=== PATIENT | female | born 1995 | race Caucasian/White ===

== ENCOUNTER 2016-11-05 22:39 | Emergency (ER) | payer SELFPAY ==
[2016-11-05] MEDS ORDERED: Sodium Chloride 0.9% 1,000 ML IV ONE (23:09)
[2016-11-05 23:38] LABS: BASO # 0.1 K/uL (0.0-0.2); BASO % 0.8 % (0.0-2.0); EOS # 0.1 K/uL (0.0-0.7); HEMATOCRIT 35.5 % (34.0-47.0); LYMPH # 3.6 K/uL (1.0-4.3); MEAN CORPUSCULAR HEMOGLOBIN 26.9 pg (27.0-31.0); MEAN CORPUSCULAR HGB CONC 33.1 g/dL (33.0-37.0); MEAN PLATELET VOLUME 9.2 fL (7.2-11.7); MONO # 0.9 K/uL (0.0-0.8); RED CELL DISTRIBUTION WIDTH 13.5 % (11.5-14.5); WHITE BLOOD COUNT 9.5 K/uL (4.8-10.8)
[2016-11-05 23:40] LABS: RBC URINE < 1 /hpf (0-3); URINE BILIRUBIN NEGATIVE (NEGATIVE); URINE BLOOD NEGATIVE (NEGATIVE); URINE COLOR Yellow (YELLOW); URINE GLUCOSE (UA) NORMAL (Normal); URINE KETONE NEGATIVE (NEGATIVE); URINE LEUKOCYTE ESTERASE NEG Leu/uL (Negative); URINE PROTEIN NEGATIVE (NEGATIVE); URINE UROBILINOGEN NORMAL mg/dL (0.2-1.0); WBC URINE < 1 /hpf (0-5)
[2016-11-05 23:46] LABS: CHLORIDE 99 mmol/L (98-107); POTASSIUM 3.7 mmol/L (3.6-5.2); SODIUM 134 mmol/L (132-148)
[2016-11-05 23:48] LABS: BILIRUBIN,TOTAL 0.5 mg/dL (0.2-1.3); CARBON DIOXIDE 25 mmol/L (22-30); GFR AFRICAN-AMERICAN > 60
[2016-11-05 23:49] LABS: ALB/GLOB RATIO 1.2 (1.0-2.1); ALKALINE PHOSPHATASE 49 U/L (38-126); ALT/SGPT 13 U/L (9-52); AST/SGOT 20 U/L (14-36); BLOOD UREA NITROGEN 13 mg/dL (7-17); GLUCOSE,RANDOM 73 mg/dL (65-105); TOTAL PROTEIN 7.4 g/dL (6.3-8.3)
--- NOTE | 2016-11-06 00:07 | C.PDOC ---
History Of Present Illness <Khalif Terrell Angel - Last Filed: 11/06/16 01:30> <Qasim Andrews E - Last Filed: 11/09/16 23:56> Patient is a 21 year old female who presents to the ER with a complaint of cramping without menstrual bleeding. Patient report she is 12 weeks , P:0, and has no prior US of this . Denies vaginal discharge and abdominal pain. (Qasim Andrews) <XanderKhalif Angel - Last Filed: 11/06/16 01:30> History Per: Patient History/Exam Limitations: no limitations Onset/Duration Of Symptoms: Hrs Current Symptoms Are (Timing): Still Present Quality Of Discomfort: Other (No pain) Associated Symptoms: denies: Other (Abdominal pain, vaginal discharge) Recent travel outside of the [place]: No : 1 Para: 0 <Qasim Andrews - Last Filed: 11/09/16 23:56> Time Seen by Provider: 11/05/16 23:01 Chief Complaint (Nursing): Female Genitourinary Past Medical History Reviewed: Historical Data, Nursing Documentation, Vital Signs - Medical History PMH: No Chronic Diseases Surgical History: No Surg Hx Family History: States: Unknown Family Hx - Social History Hx Alcohol Use: No Hx Substance Use: No - Immunization History Hx Tetanus Toxoid Vaccination: No Hx Influenza Vaccination: No Hx Pneumococcal Vaccination: No <Qasim Andrews E - Last Filed: 11/09/16 23:56> Vital Signs: Last Vital Signs Temp 97.3 F L 11/06/16 01:52 Pulse 86 11/06/16 01:52 Resp 16 11/06/16 01:52 BP 116/70 11/06/16 01:52 Pulse Ox 98 11/06/16 01:52 Review Of Systems Gastrointestinal: Negative for: Abdominal Pain Genitourinary: Positive for: Vaginal Bleeding. Negative for: Vaginal Discharge <Qasim Andrews E - Last Filed: 11/09/16 23:56> Physical Exam - Physical Exam Appears: Well, Non-toxic, No Acute Distress Skin: Normal Color, Warm, Dry Head: Atraumatic, Normacephalic Oral Mucosa: Moist Chest: Symmetrical, No Tenderness Cardiovascular: Rhythm Regular, No Murmur Respiratory: Normal Breath Sounds, No Rales, No Rhonchi, No Wheezing Gastrointestinal/Abdominal: Soft, No Tenderness, Other (Early belly) Neurological/Psych: Oriented x3, Normal Speech, Normal Cognition <Qasim Andrews - Last Filed: 11/09/16 23:56> ED Course And Treatment - Laboratory Results Result Diagrams: 11/05/16 23:33 11/05/16 23:33 <Khalif Terrell - Last Filed: 11/06/16 01:30> - Laboratory Results Result Diagrams: 11/05/16 23:33 11/05/16 23:33 Lab Interpretation: Abnormal (blood type B-neg, QHC (L for 12 weeks)) Urine POC: Positive O2 Sat by Pulse Oximetry: 99 - CT Scan/US Transvaginal US Other Rad Studies (CT/US): Read By Radiologist, Radiology Report Reviewed CT/US Interpretation: IMPRESSION: Single live intrauterine , corresponding to a gestational age of 10 weeks and 4 days. Progress Note: Transvaginal US ordered. IV fluids administered. 0005: RhoGam ordered. Reevaluation Time: 00:32 (pending pelvic US) Reassessment Condition: Unchanged <Qasim Andrews - Last Filed: 11/09/16 23:56> Medical Decision Making <Khalif Terrell - Last Filed: 11/06/16 01:30> <Qasim Andrews - Last Filed: 11/09/16 23:56> Medical Decision Making: threatened ab with cramping, no vaginal bleeding, no prior US this preg B- blood type- ? prior AB with prior sensitization? RhoGam ordered and educated. (Qasim Andrews) Disposition Counseled Patient/Family Regarding: Diagnosis - Disposition Disposition Time: 01:31 - POA Present On Arrival: None <Khalif Terrell - Last Filed: 11/06/16 01:30> - Disposition Disposition Time: 01:00 <Qasim Andrews - Last Filed: 11/09/16 23:56> - Disposition Referrals: [facility] [Outside] Disposition: HOME/ ROUTINE Condition: STABLE Instructions: First Trimester Vaginal Bleed (ED) - Clinical Impression Clinical Impression: Threatened <Khalif Terrell - Last Filed: 11/06/16 01:30> - Scribe Statement The provider has reviewed the documentation as recorded by the Scribe <Qasim Andrews - Last Filed: 11/09/16 23:56> - Scribe Statement Luis Antonio Gonsalves All medical record entries made by the Scribe were at my direction and personally dictated by me. I have reviewed the chart and agree that the record accurately reflects my personal performance of the history, physical exam, medical decision making, and the department course for this patient. I have also personally directed, reviewed, and agree with the discharge instructions and disposition. (Qasim Andrews) Physician Patient Turnover Patient Signed Over To: Khalif Terrell Handoff Comments: f/u US and dispo appropriately. <Qasim Andrews - Last Filed: 11/09/16 23:56>
[2016-11-06 01:23] VITALS: RESP 16; TEMP 97.3
[2016-11-06 01:53] VITALS: BP 116/70; PULSE 86
--- NOTE | 2016-11-06 11:57 | US ---
PROCEDURE: First trimester HISTORY: early preg, bleeding, ? ectopic vs ab COMPARISON: None TECHNIQUE: Standard protocol for this study/examination. FINDINGS: LMP: 08/15/2016 Prior examinations from the current : None TECHNIQUE: Real-time 2D imaging, duplex and color Doppler. FINDINGS: Cardiac activity: Present Rate: 154 BPM Measurements: [place] rump length: 3.67 cm Gestational age based on CRL 10 weeks 4 days Gestational age derived from LMP: 11 weeks 5 days SARAHY based on LMP: 05/22/2017. SARAHY based on biometry: 05/31/2017. Gestational concordance documented Yolk sac not identified Uterus: Unremarkable. No Cervical abnormalities: Negative examination for cervical dilatation or effacement. Subchorionic hemorrhage: None ADNEXA: Right: 1.8 x 2.2 cm. Normal Doppler arterial waveform documented. Left: 1.5 x 2.4 cm. Normal Doppler arterial waveform documented Fluid in the cul-de-sac: None. IMPRESSION: Ten weeks 4 days live intrauterine gestation. Gestational concordance documented.
[2016-11-09 23:56] VITALS: O2SAT 99
== END 2016-11-06 01:52 | disposition home or self-care (01) ==
LOC: C.ER 22:39
DX: O20.0 Threatened abortion (principal); Z3A.12 12 weeks gestation of pregnancy
CPT/HCPCS: 76805; 76817; 80053; 81001; 84702; 84703; 85025; 86850; 86900; 96360; 99284; J2792; J7040

== ENCOUNTER 2016-11-07 17:56 | Emergency (ER) | payer SELFPAY ==
[2016-11-07 18:04] VITALS: RESP 18; O2SAT 100
[2016-11-07] MEDS ORDERED: Sodium Chloride 0.9% 1,000 ML IV ONE (18:32)
[2016-11-07] MEDS ORDERED: Sodium Chloride 0.9% 1,000 ML ONE (18:43)
[2016-11-07 18:56] LABS: BASO % 0.4 % (0.0-2.0); EOS # 0.1 K/uL (0.0-0.7); EOS % 0.9 % (0.0-4.0); HEMATOCRIT 35.4 % (34.0-47.0); MEAN CELL VOLUME 80.8 fL (81.0-99.0); MEAN CORPUSCULAR HEMOGLOBIN 27.1 pg (27.0-31.0); MEAN CORPUSCULAR HGB CONC 33.5 g/dL (33.0-37.0); MEAN PLATELET VOLUME 8.8 fL (7.2-11.7); MONO # 0.7 K/uL (0.0-0.8); MONO % 8.3 % (0.0-10.0); RED CELL DISTRIBUTION WIDTH 13.6 % (11.5-14.5); WHITE BLOOD COUNT 8.9 K/uL (4.8-10.8)
[2016-11-07 19:02] LABS: RBC URINE 22 /hpf (0-3); URINE BACTERIA MOD (<OCC); URINE BILIRUBIN NEGATIVE (NEGATIVE); URINE BLOOD 3+ (NEGATIVE); URINE COLOR Yellow (YELLOW); URINE GLUCOSE (UA) NORMAL (Normal); URINE KETONE NEGATIVE (NEGATIVE); URINE LEUKOCYTE ESTERASE TRACE Leu/uL (Negative); URINE PROTEIN 1+ mg/dL (NEGATIVE); URINE UROBILINOGEN NORMAL mg/dL (0.2-1.0); WBC URINE 16 /hpf (0-5)
--- NOTE | 2016-11-07 22:53 | C.PDOC ---
Time Seen by Provider: 11/07/16 18:20 Chief Complaint (Nursing): Female Genitourinary History Per: Patient Onset/Duration Of Symptoms: Days (2) Current Symptoms Are (Timing): Still Present Severity: Moderate Quality Of Discomfort: Cramping Alleviating Factors: None Additional History Per: Prior Records Abnormal Vaginal Bleeding: Yes : 1 Past Medical History Reviewed: Historical Data, Nursing Documentation, Vital Signs Vital Signs: Last Vital Signs Temp 98.3 F 11/07/16 20:27 Pulse 76 11/07/16 20:27 Resp 18 11/07/16 20:27 BP 103/68 11/07/16 20:27 Pulse Ox 100 11/07/16 20:27 - Medical History PMH: No Chronic Diseases Surgical History: No Surg Hx Family History: States: Unknown Family Hx - Social History Hx Alcohol Use: No Hx Substance Use: No - Immunization History Hx Tetanus Toxoid Vaccination: No Hx Influenza Vaccination: No Hx Pneumococcal Vaccination: No Review Of Systems Except As Marked, All Systems Reviewed And Found Negative. Constitutional: Negative for: Fever, Weakness Cardiovascular: Negative for: Chest Pain Respiratory: Negative for: Shortness of Breath Gastrointestinal: Negative for: Vomiting Genitourinary: Positive for: Vaginal Bleeding, Pelvic Pain. Negative for: Dysuria Musculoskeletal: Negative for: Neck Pain, Back Pain Skin: Negative for: Rash Neurological: Negative for: Weakness, Numbness, Seizures, Altered Mental Status Physical Exam - Physical Exam Appears: Non-toxic, No Acute Distress Skin: Normal Color, Warm, Dry, No Rash Head: Atraumatic, Normacephalic Eye(s): bilateral: PERRL, EOMI Neck: Normal ROM, Supple Cardiovascular: Rhythm Regular Respiratory: Normal Breath Sounds, No Accessory Muscle Use Gastrointestinal/Abdominal: Soft, Tenderness (suprapubic), No Guarding, No Rebound Back: No CVA Tenderness Extremity: Normal ROM Neurological/Psych: Oriented x3, Normal Motor, Normal Sensation ED Course And Treatment - Laboratory Results Result Diagrams: 11/07/16 18:54 O2 Sat by Pulse Oximetry: 100 Pulse Ox Interpretation: Normal - CT Scan/US Pelvic US Other Rad Studies (CT/US): Read By Radiologist, Radiology Report Reviewed CT/US Interpretation: Probable impending . Disposition Discussed With : Sujit Loya Comment: She evaluated pt in the ED and performed a pelvic exam. She states that cervix is closed so diagnosis is threatned ab. Doctor Will See Patient In The: ED Counseled Patient/Family Regarding: Studies Performed, Diagnosis, Need For Followup, Rx Given - Disposition Disposition: HOME/ ROUTINE Disposition Time: 22:53 Condition: IMPROVED Additional Instructions: Follow up with your Screen Making Technician doctor this week. Return to the ER if you develop dizziness, heavy bleeding, fever, worsening of symptoms or if you have any other concerns. Prescriptions: Acetaminophen [Tylenol Extra Strength] 2 tab PO Q6 PRN #30 tablet PRN Reason: Pain, Moderate (4-7) Instructions: Threatened Miscarriage (ED) - Clinical Impression Clinical Impression: Threatened
--- NOTE | 2016-11-07 22:53 | CP.PCM.CON ---
History of Present Illness - History of Present Illness History of Present Illness: Reason for consult-vaginal bleeding HPI 21 y/o with lmp 08/15/2016 presents toe d with c/o pelvic pain and spotting.patient states that she was seen yesterday and discharged home with a viable .Today she noticed pain in plevic area along with spotting and hence she returned to ER. Scot heavy bleeding or loss off luid PMH deniea psh denies obgyn hx social hx denies tobacco,alcohol or illicit drug use Review of Systems - Review of Systems All systems: reviewed and no additional remarkable complaints except - Gastrointestinal Gastrointestinal: Abdominal Pain - Reproductive: Female Reproductive:Female: Abnormal Vaginal Bleeding Past Patient History - Infectious Disease Hx of Infectious Diseases: None - Past Social History Smoking Status: Never Smoked - NEUROLOGICAL Hx Neurological Disorder: No - HEENT Hx HEENT Problems: No - RENAL Hx Chronic Kidney Disease: No - ENDOCRINE/METABOLIC Hx Endocrine Disorders: No - HEMATOLOGICAL/ONCOLOGICAL Hx Blood Disorders: No - GASTROINTESTINAL Hx Gastrointestinal Disorders: No - GENITOURINARY/GYNECOLOGICAL LMP:: 08/15/2016 - PSYCHIATRIC Hx Substance Use: No - SURGICAL HISTORY Hx Surgeries: No - ANESTHESIA Hx Anesthesia: No Meds Home Medications: Home Medication List Medication Instructions Recorded Confirmed Type Acetaminophen [Tylenol Extra 2 tab PO Q6 PRN #30 tablet 11/07/16 Rx Strength] Allergies/Adverse Reactions: Allergies Allergy/AdvReac Type Severity Reaction Status Date / Time No Known Allergies Allergy Verified 11/07/16 18:04 Physical Exam - Constitutional Appears: Well, No Acute Distress - Respiratory Exam Respiratory Exam: Clear to Auscultation Bilateral, NORMAL BREATHING PATTERN - Cardiovascular Exam Cardiovascular Exam: REGULAR RHYTHM - GI/Abdominal Exam GI & Abdominal Exam: Soft. absent: Guarding, Rebound, Rigid, Tenderness - Exam External exam: NORMAL EXTERNAL EXAM Additional comments: small amount of dark blood in vagina; cervix closed - Extremities Exam Extremities exam: Negative for: calf tenderness - Back Exam Back exam: absent: CVA tenderness (L), CVA tenderness (R) - Neurological Exam Neurological exam: Alert, Oriented x3 - Psychiatric Exam Psychiatric exam: Normal Affect, Normal Mood - Skin Skin Exam: Normal Color Results - Vital Signs Recent Vital Signs: Last Vital Signs Temp 98.3 F 11/07/16 20:27 Pulse 76 05/28/17 20:27 Resp 18 11/07/16 20:27 BP 103/68 11/07/16 20:27 Pulse Ox 100 11/07/16 20:27 - Labs Result Diagrams: 11/07/16 18:54 Labs: Laboratory Results - last 24 hr 11/07/16 11/07/16 11/07/16 18:54 18:54 18:54 WBC 8.9 RBC 4.38 Hgb 11.9 Hct 35.4 MCV 80.8 L MCH 27.1 MCHC 33.5 RDW 13.6 Plt Count 236 MPV 8.8 Neut % (Auto) 56.4 Lymph % (Auto) 34.0 [place] % (Auto) 8.3 Eos % (Auto) 0.9 Baso % (Auto) 0.4 Neut # 5.0 Lymph # 3.0 [place] # 0.7 Eos # 0.1 Baso # 0.0 Beta HCG, Quant 02973.00 Urine Color Yellow Urine Clarity Hazy Urine pH 7.0 Ur Specific [place] 1.021 Urine Protein 1+ H Urine Glucose (UA) Normal Urine Ketones Negative Urine Blood 3+ H Urine Nitrate Negative Urine Bilirubin Negative Urine Urobilinogen Normal Ur Leukocyte Esterase Trace Urine WBC (Auto) 16 H Urine RBC (Auto) 22 H Ur Squamous Epith Cells 13 H Urine Bacteria Mod H Assessment & Plan (1) Threatened Assessment and Plan: patient with c/o pelvic pain and vaginal bleeding.rh negative.s/p rhogam 2016.On exam cervix clsoed and scant dark red blood seen in vagina threatened versus impending ultrasound done today shows live intrauterine measuring 9 weeks and 2 days with gestational sac in lower uterine segment.FHR 173 BPM. As per [facility] funneling of cervix seen. Findings discussed with patient.discussed miscarriage with patient. Patient desires to keep the .Patient advised of the chances of miscarriage due to ultrasound findings. Bleeding and precautions given Follow up with obgyn in 1-2 days.return to er if you have severe pain, heavy bleeding or any other problems Status: Acute Priority: High
[2016-11-07 23:06] VITALS: BP 109/70; PULSE 79; TEMP 98.1
--- NOTE | 2016-11-08 08:40 | US ---
PROCEDURE: First trimester HISTORY: Pain/bleeding COMPARISON: 11/06/2016 TECHNIQUE: Standard protocol for this study/examination. FINDINGS: LMP: 08/15/2016 Prior examinations from the current : 11/06/2016 TECHNIQUE: Real-time 2D imaging, duplex and color Doppler. FINDINGS: Cardiac activity: Present Rate: 164 BPM Measurements: [place] rump length: 3.39 cm Gestational age based on CRL 10 weeks 2 days Gestational age based on gestational sac measurement 8 weeks 2 days Gestational age derived from LMP: 12 weeks SARAHY based on LMP: 05/22/2017 SARAHY based on biometry: 06/10/2017 Gestational concordance documented Yolk sac not identified Uterus: Unremarkable. The gestational sac is now in the lower uterine segment near the cervix. Subchorionic hemorrhage: None ADNEXA: Right: 2.5 x 1.4 cm. Normal Doppler arterial waveform documented. Left: 1.6 x 2.6 cm. Normal Doppler arterial waveform documented Fluid in the cul-de-sac: None IMPRESSION: 9 weeks 2 days live intrauterine gestation. Migration of the gestational sac and contents to the lower endometrial canal may suggest impending . Concordant results (preliminary interpretation) provided by [employer]. Procedure Completed: 09:34 Preliminary ([facility]) Report: Dictated and Authenticated: 22:00 Final Interpretation: 08:34. November 08, 2016. All
== END 2016-11-07 23:07 | disposition home or self-care (01) ==
LOC: C.ER 17:56
DX: O20.0 Threatened abortion (principal); Z3A.09 9 weeks gestation of pregnancy
CPT/HCPCS: 76805; 76817; 81001; 84702; 85025; 96360; 99285; J7040

== ENCOUNTER 2016-11-08 16:18 | Emergency (ER) | payer SELFPAY ==
[2016-11-08 16:23] VITALS: BP 105/72; PULSE 94; RESP 18; TEMP 98; O2SAT 97
--- NOTE | 2016-11-08 17:40 | C.PDOC ---
History Of Present Illness Pt was seen here by me last night. She had an U/S that showed and impending Ab. Pt states that after she went home she had more cramping and bleeding and passed what sounds like tissue. She stated that now cramping and bleeding have improved. Time Seen by Provider: 11/08/16 16:34 Chief Complaint (Nursing): Female Genitourinary History Per: Patient, Family Onset/Duration Of Symptoms: Days Current Symptoms Are (Timing): Still Present Severity: Moderate Quality Of Discomfort: Cramping Alleviating Factors: None Additional History Per: Prior Records Abnormal Vaginal Bleeding: Yes Past Medical History Reviewed: Historical Data, Nursing Documentation, Vital Signs Vital Signs: Last Vital Signs Temp 98 F 11/08/16 16:21 Pulse 94 H 11/08/16 16:21 Resp 18 11/08/16 16:21 BP 105/72 11/08/16 16:21 Pulse Ox 97 11/08/16 16:21 - Medical History PMH: No Chronic Diseases Surgical History: No Surg Hx Family History: States: Unknown Family Hx - Social History Hx Alcohol Use: No Hx Substance Use: No - Immunization History Hx Tetanus Toxoid Vaccination: No Hx Influenza Vaccination: No Hx Pneumococcal Vaccination: No Review Of Systems Except As Marked, All Systems Reviewed And Found Negative. Constitutional: Negative for: Fever, Weakness Cardiovascular: Negative for: Chest Pain, Light Headedness Respiratory: Negative for: Shortness of Breath Gastrointestinal: Negative for: Vomiting Genitourinary: Positive for: Vaginal Bleeding, Pelvic Pain. Negative for: Dysuria Musculoskeletal: Negative for: Neck Pain, Back Pain Neurological: Negative for: Weakness, Numbness, Seizures, Altered Mental Status , Dizziness Physical Exam - Physical Exam Appears: Non-toxic, No Acute Distress Skin: Normal Color, Warm, Dry, No Rash Head: Atraumatic, Normacephalic Eye(s): bilateral: Normal Inspection, PERRL, EOMI Oral Mucosa: Moist Neck: Normal ROM, Supple Cardiovascular: Rhythm Regular Respiratory: Normal Breath Sounds, No Accessory Muscle Use Gastrointestinal/Abdominal: Soft, No Tenderness Back: No CVA Tenderness Extremity: Normal ROM Neurological/Psych: Oriented x3, Normal Motor, Normal Sensation ED Course And Treatment O2 Sat by Pulse Oximetry: 97 Pulse Ox Interpretation: Normal - Physician Consult Information Physician Contacted: Sujit Loya (Supercharger Mechanic) Outcome Of Conversation: She had examined pt last night. She states that pt had a Ab and no need for any intervention today. Pt needs to f/up with her Supercharger Mechanic doctor. Disposition Counseled Patient/Family Regarding: Diagnosis, Need For Followup - Disposition Disposition: HOME/ ROUTINE Disposition Time: 17:41 Condition: STABLE Additional Instructions: Follow up with your Plc Controls Engineer within 1-2 weeks. Return to the ER if you develop fever, vomiting, dizziness, worsening of symptoms or if you have any other concerns. Instructions: Spontaneous Miscarriage (ED) - Clinical Impression Clinical Impression:
== END 2016-11-08 17:54 | disposition home or self-care (01) ==
LOC: C.ER 16:18
DX: O03.9 Complete or unspecified spontaneous abortion without complication (principal)